=== PATIENT | male | born 1995 | race Caucasian/White ===

== ENCOUNTER 2017-07-02 15:28 | Emergency (ER) | payer OTHER ==
[~2017-07-02] VITALS: Ht 193 cm; Wt 81.6 kg
[2017-07-02 15:45] VITALS: BP 148/87; PULSE 79; TEMP 36.9; O2SAT 99; Ht 193 cm; Wt 81.6 kg
--- NOTE | 2017-07-02 17:35 | DIAGNOSTIC IMAGING REPORT ---
SCROTAL ULTRASOUND CLINICAL HISTORY: inferior penile/superior scrotal pain s/p trauma 1 mo ago COMPARISON STUDY: None. TECHNIQUE: Grayscale and color and duplex Doppler sonography of the scrotum was performed. FINDINGS: The right testis measures 5 x 2.3 x 3 cm and the left measures 5.1 x 2.2 x 3.2 cm. There is no testicular mass. Color flow within each testis is symmetric. There is no evidence for testicular trauma by sonography. The right epididymis is normal. There is a 6 mm left epididymal head cyst. IMPRESSION: Normal sonographic appearance of the testes. No evidence for testicular trauma or torsion. Electronically signed by: Darrell Ortiz M.D. 07/02/2017 5:34 PM Dictated Date/Time: 07/02/2017 5:31 PM
--- NOTE | 2017-07-02 17:52 | EMERGENCY ROOM VISIT NOTE ---
History First contact with patient: 15:50 Chief Complaint: GROIN PAIN Stated Complaint: GROIN INJURY History of Present Illness The patient is a 21 year old male who presents to the Emergency Room with complaints of "groin pain/injury". The patient states that one month ago he was playing basketball, and accidentally was struck in the groin region by a knee. He states that he had some pain in that region but not other than previous injuries which only lasted 1 day. He states that however during intercourse about 3 weeks ago he had pain with ejaculation during intercourse. He states that he also experienced pain today while lifting heavy weights. He points to the base/inferior region of the penis/proximal scrotum as a location of pain that he rates as a 1/10. He notes that there is really not any pain currently however it is more of an uncomfortable sensation. He states that there is no penile discharge, or concern over sexually transmitted infection. He denies any urinary symptoms. Review of Systems A complete 6-point Review of Systems was discussed with the patient, with pertinent positives and negatives listed in the History of Present Illness. All remaining Review of Systems questions can be considered negative unless otherwise specified. Past Medical/Surgical History Stomach problems. Anxiety. Trouble eating. Family History No pertinent. Social History Smoking Status: Never Smoker Pt. lives locally and is a [employer] Student. Current/Historical Medications No Active Prescriptions or Reported Meds Physical Exam Vital Signs Date Time Temp Pulse Resp B/P (MAP) Pulse Ox O2 Delivery O2 Flow Rate FiO2 07/02/17 15:45 36.9 79 16 148/87 99 Room Air Physical Exam VITAL SIGNS - Vital signs and nursing notes were reviewed. Stable. GENERAL - 21-year-old male appearing his stated age who is in no acute distress. Communicates well with provider and answers questions appropriately. SKIN - Without rashes. Skin overlying the scrotum and penis is unremarkable. Please refer to section of physical examination for remainder of findings. HEAD - NC/AT. MOUTH/OROPHARYNX - Without perioral cyanosis. ABDOMEN - Abdominal contour normal without pulsations or visible masses. No abdominal tenderness, and specifically no inferior abdominal tenderness. No hernia appreciated. : There is minimal tenderness just inferior to the base of the penis and superior scrotum. No palpable masses. No testicular tenderness. No perineal tenderness. PSYCH - Pt is very pleasant and interacts well with examiner. Medical Decision & Procedures ER Provider Diagnostic Interpretation: SCROTAL ULTRASOUND CLINICAL HISTORY: inferior penile/superior scrotal pain s/p trauma 1 mo ago COMPARISON STUDY: None. TECHNIQUE: Grayscale and color and duplex Doppler sonography of the scrotum was performed. FINDINGS: The right testis measures 5 x 2.3 x 3 cm and the left measures 5.1 x 2.2 x 3.2 cm. There is no testicular mass. Color flow within each testis is symmetric. There is no evidence for testicular trauma by sonography. The right epididymis is normal. There is a 6 mm left epididymal head cyst. IMPRESSION: Normal sonographic appearance of the testes. No evidence for testicular trauma or torsion. Electronically signed by: Darrell Ortiz M.D. 07/02/2017 5:34 PM Dictated Date/Time: 07/02/2017 5:31 PM Laboratory Results Test 07/02/17 16:00 Urine Color YELLOW Urine Appearance CLEAR (CLEAR) Urine pH 7.5 (4.5-7.5) Urine Specific Decker 1.022 (1.000-1.030) Urine Protein NEG (NEG) Urine Glucose (UA) NEG (NEG) Urine Ketones NEG (NEG) Urine Occult Blood NEG (NEG) Urine Nitrite NEG (NEG) Urine Bilirubin NEG (NEG) Urine Urobilinogen NEG (NEG) Urine Leukocyte Esterase NEG (NEG) Medical Decision Patient was seen and evaluated as above. He presents to us today with groin pain. It has been associated with trauma 1 month ago. He has had 2 painful episodes one during intercourse and one during heavy lifting. He notes no pain at the present rather just an uncomfortable sensation in that region. Review was performed of nursing notes and vital signs. After obtaining a thorough history and physical examination the above work up was performed. Ultrasound was obtained and found to be negative. There is a small epididymal cyst which I do not believe is causing his discomfort. There is also a negative urine. G& C testing pending. I do not suspect STI. He appears stable to follow-up in the outpatient setting with urology of which I provided him the contact information for. He is to return with worsening. Case was discussed with the attending physician. I suspect he likely has a small bruise to this region of which is resolving. The patient was educated upon management, had questions answered prior to discharge, and was discharged home in good condition. In the evaluation and treatment of this patient the following differential diagnoses were entertained: STI, trauma, torsion, proctitis, penile fracture, among others. Impression Primary Impression: Scrotal pain Departure Information Dispostion Home / Self-Care Condition GOOD Prescriptions No Active Prescriptions or Reported Meds Referrals No Doctor, Assigned (PCP) Preet Danielle M.D. Patient Instructions [facility] Additional Instructions You have been treated in the Emergency Department your scrotal Pain. Laboratory results and imaging studies have ruled out any emergent causes for your pain which would warrant admission or surgery however, do recommend follow up with urology for further evaluation and management. Drink plenty of water and stay well hydrated. As with any trip to the Emergency Department, you should follow-up with your Primary Care Provider from today's visit and urology (Dr. Danielle). Please call first thing tomorrow to schedule follow. Please state you were seen in the ER. Return to the emergency department if your symptoms persist despite treatment plan outlined above or if the following symptoms occur: increased fevers, chills , worsening nausea/vomiting, blood in your stool or urine or changes in your symptoms.
== END 2017-07-02 18:17 | disposition home or self-care (01) ==
LOC: C.EDB 15:30 → C.EDD 18:17
DX: N50.82 Scrotal pain (principal); W50.0XXA Accidental hit or strike by another person, initial encounter; Y93.67 Activity, basketball; N50.3 Cyst of epididymis